=== PATIENT | male | born 2000 | race Caucasian/White ===

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

== ENCOUNTER 2020-10-02 10:02 | Emergency (ER) | payer BC, MEDICAID ==
[~2020-10-02] VITALS: Ht 162.6 cm; Wt 64.3 kg
--- NOTE | 2020-10-02 11:15 | NUR ---
PT AMBULATORY TO ROOM 25 W/ C/O L TESITCLE PAIN AND WHAT HE BELIEVES TO BE EPIDIDYMITIS. PER PT WAS SEEN AT [facility] 4-5 MONTHS AGO FOR SIMILAR SX AND FOUND TO HAVE CHALMYDIA. WAS TREATED W/ ABX BUT STATES THEY CALLED HIM CORRECTION THROUGH COURSE TO EXTEND ABX USE AND PT "MESSED UP AND TOOK 2 ONE DAY AND THEN DIDN'T FINISH THE COURSE". PT DENIES PAINFUL URINATION AT THIS TIME. PT RESTING ON GURNEY. NADN. MONITORS APPLIED. VSS. WARM BLANKET PROVIDED. CALL LIGHT IN REACH.
--- NOTE | 2020-10-02 11:26 | NUR ---
DANIEL YAP AT BEDSIDE FOR EVAL.
--- NOTE | 2020-10-02 11:47 | NUR ---
PT RESTING ON GURNEY. NADN. BAUMAN.
[2020-10-02 11:53] LABS: MICROSCOPIC NOT IND
--- NOTE | 2020-10-02 12:46 | NUR ---
PT RESTING ON GURNEY. NADN. BAUMAN.
--- NOTE | 2020-10-02 13:10 | NUR ---
US AT BEDSIDE.
[2020-10-02 13:40] VITALS: BP 104/61
--- NOTE | 2020-10-02 13:40 | NUR ---
PT RESTING ON GURNEY. NADN. BAUMAN.
--- NOTE | 2020-10-02 13:52 | NUR ---
PT CHART REVIEWED AND PLACED FOR RECHECK.
== END 2020-10-02 14:04 | disposition home or self-care (01) ==
LOC: ED 13:50
DX: I86.1 Scrotal varices (principal)
CPT/HCPCS: 76870; 81003; 87491; 87591; 99285

== ENCOUNTER 2020-11-20 21:41 | Emergency (ER) | payer BC ==
[~2020-11-20] VITALS: Ht 162.6 cm; Wt 54.1 kg
[2020-11-20] MEDS ORDERED: DIPH,PERTUSS(ACELL),TET VAC/PF 0.5 ML IM-VACC ONE (22:00)
[2020-11-20] MEDS ORDERED: LIDOCAINE 1%, 10ML INFIL ONE (22:00)
--- NOTE | 2020-11-20 22:47 | NUR ---
FOOD TASTER: PT. TO ROOM FROM LOBBY AT THIS TIME.
[2020-11-20] MEDS ORDERED: LIDOCAINE-MPF 1%, 5ML ONE (23:38)
[2020-11-21] MEDS ORDERED: DIPH,PERTUSS(ACELL),TET VAC/PF 0.5 ML IM-VACC ONE (00:21)
[2020-11-21] MEDS ORDERED: NEOSPORIN OINT. PKT 1 PACKET ONE (00:44)
[2020-11-21 01:08] VITALS: BP 114/83
== END 2020-11-21 01:09 | disposition home or self-care (01) ==
LOC: ED 23:47
DX: S61.226A Laceration with foreign body of right little finger without damage to nail, initial encounter (principal); S61.214A Laceration without foreign body of right ring finger without damage to nail, initial encounter; S61.411A Laceration without foreign body of right hand, initial encounter; F17.200 Nicotine dependence, unspecified, uncomplicated; X58.XXXA Exposure to other specified factors, initial encounter; Y93.89 Activity, other specified; Y92.009 Unspecified place in unspecified non-institutional (private) residence as the place of occurrence of the external cause; Y99.8 Other external cause status
CPT/HCPCS: 12001; 12041; 90471; 90715

== ENCOUNTER 2020-11-29 22:22 | Emergency (ER) | payer BC, OTHER ==
[~2020-11-29] VITALS: Ht 165.1 cm; Wt 54.5 kg
[2020-11-29 22:31] VITALS: BP 122/75
[2020-11-29] MEDS ORDERED: NEOSPORIN OINT. PKT 1 PACKET ONE (22:36)
--- NOTE | 2020-11-29 23:00 | NUR ---
Patient/Caregiver given discharge instructions and they have confirmed that they understand the instructions. Patient ambulatory with steady gait. NAD, all questions answered appropriately, denies additional needs at this time. No personal belongings left in room after discharge. WOUND DRESSED APPROPRIATELY.
== END 2020-11-29 23:02 | disposition home or self-care (01) ==
LOC: ED 22:27
DX: S61.214D Laceration without foreign body of right ring finger without damage to nail, subsequent encounter (principal); S61.216D Laceration without foreign body of right little finger without damage to nail, subsequent encounter; F17.210 Nicotine dependence, cigarettes, uncomplicated; Z72.9 Problem related to lifestyle, unspecified; X58.XXXD Exposure to other specified factors, subsequent encounter
CPT/HCPCS: 99282